=== PATIENT | female | born 1995 | race Two or more races ===

== ENCOUNTER 2023-02-08 15:38 | Emergency (ER) | payer OTHER ==
[~2023-02-08] VITALS: Ht 167.6 cm; Wt 58.1 kg
[2023-02-08 19:07] VITALS: BP 113/85; TEMP 98.3; O2SAT 98
== END 2023-02-08 19:09 | disposition left against medical advice (07) ==
LOC: ER 15:52
DX: R00.0 Tachycardia, unspecified (principal); Z53.21 Procedure and treatment not carried out due to patient leaving prior to being seen by health care provider